=== PATIENT | male | born 1975 | race Caucasian/White ===

== ENCOUNTER 2018-05-28 04:34 | Inpatient (IN) | payer BC ==
[2018-05-28] MEDS ORDERED: DILTIAZEM DRIP BOLUS FROM BAG 1 MG SOLN IV ONE (04:53)
[2018-05-28] MEDS ORDERED: SODIUM CHLORIDE 0.9% 1,000 ML IV STA (04:53)
--- NOTE | 2018-05-28 04:55 | ED ---
Arrhythmia/Palpitations HPI - General Chief Complaint: Arrhythmia/Palpitations Stated Complaint: Irregular Heartbeat Time Seen by Provider: 05/28/18 04:52 Source: patient Mode of arrival: ambulatory Limitations: no limitations - History of Present Illness Initial Comments: This patient is a 43-year-old man who presents with complaint that he believes she has gone back into atrial fibrillation. The patient had an episode of this a few years ago, was seen and successfully converted back to sinus rhythm and had been doing well. He had been taking Rythmol for a period of time, then that was stopped. He does not take any medications for this. The patient relates that he had a number of alcoholic drinks on Saturday night, and then woke Saturday morning with symptoms. He states that he experienced rapid and irregular heart beat. He was not having any other symptoms, including no dyspnea, diaphoresis, chest pain, nausea or vomiting. When the symptoms continued he felt he should be seen here tonight. The patient again is not having any anginal symptoms. MD Complaint: atrial fibrillation Onset/Timin -: days(s) Context: awoke with symptoms Arrhythmia History: atrial fibrillation Associated Symptoms: denies other symptoms - Related Data Home Medications Medication Instructions Recorded Confirmed No Known Home Medications 05/28/18 05/28/18 Allergies Allergy/AdvReac Type Severity Reaction Status Date / Time No Known Allergies Allergy Verified 05/28/18 07:16 Review of Systems ROS Statement: Those systems with pertinent positive or pertinent negative responses have been documented in the HPI. ROS Other: All systems not noted in ROS Statement are negative. Constitutional: Denies: fever, chills Respiratory: Denies: cough, dyspnea Cardiovascular: Reports: palpitations. Denies: chest pain, orthopnea, edema, syncope Gastrointestinal: Denies: abdominal pain, nausea, vomiting Musculoskeletal: Denies: back pain Skin: Denies: rash Neurological: Denies: headache, weakness, numbness, paresthesias Hematological/Lymphatic: Denies: easy bleeding Past Medical History Past Medical History: Atrial Fibrillation History of Any Multi-Drug Resistant Organisms: None Reported Past Surgical History: Tonsillectomy Past Psychological History: No Psychological Hx Reported Smoking Status: Never smoker Past Alcohol Use History: Occasional Past Drug Use History: None Reported - Past Family History Father Family Medical History: Congestive Heart Failure (CHF) Mother Family Medical History: No Reported History General Exam Limitations: no limitations General appearance: alert, in no apparent distress Head exam: Present: atraumatic, normocephalic Eye exam: Present: normal appearance. Absent: scleral icterus, conjunctival injection ENT exam: Present: normal oropharynx Neck exam: Present: normal inspection Respiratory exam: Present: normal lung sounds bilaterally. Absent: respiratory distress, wheezes, rales, rhonchi, stridor Cardiovascular Exam: Present: tachycardia, irregular rhythm, normal heart sounds. Absent: systolic murmur, diastolic murmur, rubs, gallop GI/Abdominal exam: Present: soft. Absent: distended, tenderness, guarding, rebound, rigid, mass Extremities exam: Present: normal inspection, normal capillary refill. Absent: pedal edema, calf tenderness Back exam: Present: normal inspection. Absent: CVA tenderness (R), CVA tenderness (L) Neurological exam: Present: alert Skin exam: Present: warm, dry, intact, normal color. Absent: rash Course Vital Signs 05/28/18 05/28/18 04:40 06:00 Temperature 97.8 F Pulse Rate 67 94 Respiratory 18 13 Rate Blood Pressure 117/72 118/76 O2 Sat by Pulse 100 98 Oximetry EKG Findings - EKG Results: EKG: interpreted by ERMD, normal axis, normal QRS, normal ST/T EKG shows: atrial fibrillation (Rate approximately 136 bpm) Medical Decision Making - Lab Data Result diagrams: 05/28/18 05:00 05/28/18 05:00 Lab Results 05/28/18 05/28/18 05/28/18 Range/Units 05:00 05:00 05:00 WBC 6.5 (3.8-10.6) k/uL RBC 5.63 (4.30-5.90) m/uL Hgb 16.3 (13.0-17.5) gm/dL Hct 49.0 (39.0-53.0) % MCV 87.1 (80.0-100.0) fL MCH 29.0 (25.0-35.0) pg MCHC 33.3 (31.0-37.0) g/dL RDW 13.4 (11.5-15.5) % Plt Count 294 (150-450) k/uL Neutrophils % 65 % Lymphocytes % 24 % Monocytes % 7 % Eosinophils % 2 % Basophils % 0 % Neutrophils # 4.2 (1.3-7.7) k/uL Lymphocytes # 1.6 (1.0-4.8) k/uL Monocytes # 0.5 (0-1.0) k/uL Eosinophils # 0.1 (0-0.7) k/uL Basophils # 0.0 (0-0.2) k/uL PT (9.0-12.0) sec INR (<1.2) APTT (22.0-30.0) sec Sodium 140 (137-145) mmol/L Potassium 4.4 (3.5-5.1) mmol/L Chloride 106 (98-107) mmol/L Carbon Dioxide 25 (22-30) mmol/L Anion Gap 9 mmol/L BUN 14 (9-20) mg/dL Creatinine 0.93 (0.66-1.25) mg/dL Est GFR (CKD-EPI)AfAm >90 (>60 ml/min/1.73 sqM) Est GFR (CKD-EPI)NonAf >90 (>60 ml/min/1.73 sqM) Glucose 111 H (74-99) mg/dL Calcium 9.4 (8.4-10.2) mg/dL Magnesium 2.0 (1.6-2.3) mg/dL Total Bilirubin 1.1 (0.2-1.3) mg/dL AST 20 (17-59) U/L ALT 37 (21-72) U/L Alkaline Phosphatase 83 (38-126) U/L Total Creatine Kinase 120 (55-170) U/L CK-MB (CK-2) 0.9 (0.0-2.4) ng/mL CK-MB (CK-2) Rel Index 0.8 Troponin I <0.012 (0.000-0.034) ng/mL Total Protein 7.6 (6.3-8.2) g/dL Albumin 4.2 (3.5-5.0) g/dL TSH 1.290 (0.465-4.680) mIU/L Urine Opiates Screen (NotDetected) Ur Oxycodone Screen (NotDetected) Urine Methadone Screen (NotDetected) Ur Propoxyphene Screen (NotDetected) Ur Barbiturates Screen (NotDetected) U Tricyclic Antidepress (NotDetected) Ur Phencyclidine Scrn (NotDetected) Ur Amphetamines Screen (NotDetected) U Methamphetamines Scrn (NotDetected) U Benzodiazepines Scrn (NotDetected) Urine Cocaine Screen (NotDetected) U Marijuana (THC) Screen (NotDetected) 05/28/18 05/28/18 Range/Units 05:00 06:43 WBC (3.8-10.6) k/uL RBC (4.30-5.90) m/uL Hgb (13.0-17.5) gm/dL Hct (39.0-53.0) % MCV (80.0-100.0) fL MCH (25.0-35.0) pg MCHC (31.0-37.0) g/dL RDW (11.5-15.5) % Plt Count (150-450) k/uL Neutrophils % % Lymphocytes % % Monocytes % % Eosinophils % % Basophils % % Neutrophils # (1.3-7.7) k/uL Lymphocytes # (1.0-4.8) k/uL Monocytes # (0-1.0) k/uL Eosinophils # (0-0.7) k/uL Basophils # (0-0.2) k/uL PT 9.9 (9.0-12.0) sec INR 0.9 (<1.2) APTT 23.3 (22.0-30.0) sec Sodium (137-145) mmol/L Potassium (3.5-5.1) mmol/L Chloride (98-107) mmol/L Carbon Dioxide (22-30) mmol/L Anion Gap mmol/L BUN (9-20) mg/dL Creatinine (0.66-1.25) mg/dL Est GFR (CKD-EPI)AfAm (>60 ml/min/1.73 sqM) Est GFR (CKD-EPI)NonAf (>60 ml/min/1.73 sqM) Glucose (74-99) mg/dL Calcium (8.4-10.2) mg/dL Magnesium (1.6-2.3) mg/dL Total Bilirubin (0.2-1.3) mg/dL AST (17-59) U/L ALT (21-72) U/L Alkaline Phosphatase (38-126) U/L Total Creatine Kinase (55-170) U/L CK-MB (CK-2) (0.0-2.4) ng/mL CK-MB (CK-2) Rel Index Troponin I (0.000-0.034) ng/mL Total Protein (6.3-8.2) g/dL Albumin (3.5-5.0) g/dL TSH (0.465-4.680) mIU/L Urine Opiates Screen Not Detected (NotDetected) Ur Oxycodone Screen Not Detected (NotDetected) Urine Methadone Screen Not Detected (NotDetected) Ur Propoxyphene Screen Not Detected (NotDetected) Ur Barbiturates Screen Not Detected (NotDetected) U Tricyclic Antidepress Not Detected (NotDetected) Ur Phencyclidine Scrn Not Detected (NotDetected) Ur Amphetamines Screen Not Detected (NotDetected) U Methamphetamines Scrn Not Detected (NotDetected) U Benzodiazepines Scrn Not Detected (NotDetected) Urine Cocaine Screen Not Detected (NotDetected) U Marijuana (THC) Screen Not Detected (NotDetected) Critical Care Time Critical Care Time: Yes (35 minutes) Disposition Clinical Impression: Atrial fibrillation Disposition: ADMITTED IP TO THIS [facility] Condition: Fair Is patient prescribed a controlled substance at d/c from ED?: No
[2018-05-28] MEDS ORDERED: ENOXAPARIN 80 MG/0.8 ML SYRINGE SQ STA (05:00)
[2018-05-28 05:13] LABS: Basophils % (A) 0 %; Eosinophils # (A) 0.1 k/uL (0-0.7); Eosinophils % (A) 2 %; HGB 16.3 gm/dL (13.0-17.5); Lymphocytes # (A) 1.6 k/uL (1.0-4.8); Lymphocytes % (A) 24 %; MCHC 33.3 g/dL (31.0-37.0); MCV 87.1 fL (80.0-100.0); Mean Platelet Volume 6.5; Monocytes # (A) 0.5 k/uL (0-1.0); Monocytes % (A) 7 %; Neutrophils # (A) 4.2 k/uL (1.3-7.7); Neutrophils % (A) 65 %; Platelet Count 294 k/uL (150-450); RBC 5.63 m/uL (4.30-5.90); RDW 13.4 % (11.5-15.5); WBC 6.5 k/uL (3.8-10.6)
[2018-05-28] MEDS ORDERED: DILTIAZEM 125 MG in SODIUM CHLORIDE 0.9% 100 ML IV SCH (05:15)
--- NOTE | 2018-05-28 05:15 | XR ---
EXAM: XR Chest, 1 View CLINICAL HISTORY: dysrhythmia TECHNIQUE: Frontal view of the chest. COMPARISON: None. FINDINGS: Lungs: Unremarkable. No consolidation. Pleural space: Unremarkable. No pneumothorax. Heart: Unremarkable. No cardiomegaly. Mediastinum: Unremarkable. Bones/joints: Unremarkable. IMPRESSION: No acute cardiopulmonary process.
[2018-05-28 05:21] LABS: ALT 37 U/L (21-72); AST 20 U/L (17-59); Albumin 4.2 g/dL (3.5-5.0); Alkaline Phosphatase 83 U/L (38-126); Anion Gap 9 mmol/L; Blood Urea Nitrogen 14 mg/dL (9-20); Calcium 9.4 mg/dL (8.4-10.2); Carbon Dioxide 25 mmol/L (22-30); Chloride 106 mmol/L (98-107); Glucose 111 mg/dL (74-99); INR 0.9 (<1.2); Partial Thromboplastin Time 23.3 sec (22.0-30.0); Potassium 4.4 mmol/L (3.5-5.1); Prothrombin Time 9.9 sec (9.0-12.0); Sodium 140 mmol/L (137-145); Total Bilirubin 1.1 mg/dL (0.2-1.3); Total Protein 7.6 g/dL (6.3-8.2)
[2018-05-28 05:48] LABS: Creatine Kinase 120 U/L (55-170)
[2018-05-28 06:00] LABS: Creatine Kinase MB 0.9 ng/mL (0.0-2.4); Troponin I <0.012 ng/mL (0.000-0.034)
[2018-05-28] MEDS ORDERED: NITROGLYCERIN SL TABS 0.4 MG TAB SUBLINGUAL PRN (07:09)
[2018-05-28 07:15] LABS: Amphetamine Screen,Urine Not Detected (NotDetected); Barbiturate Screen,Urine Not Detected (NotDetected); Benzodiazepines Screen,Urine Not Detected (NotDetected); Cocaine Screen,Urine Not Detected (NotDetected); Methadone Screen, Urine Not Detected (NotDetected); Opiate Screen,Urine Not Detected (NotDetected); Oxycodone Screen, Urine Not Detected (NotDetected); Phencyclidine Screen,Urine Not Detected (NotDetected); Tricyclic Antidepressant,Urine Not Detected (NotDetected); Urn Cannabinoid Scrn Not Detected (NotDetected)
[2018-05-28] MEDS ORDERED: ENOXAPARIN 80 MG/0.8 ML SYRINGE SQ SCH (08:00)
[2018-05-28 10:22] VITALS: RESP 17; TEMP 97.4
--- NOTE | 2018-05-28 11:02 | P.CRDCN ---
History of Present Illness Consult date: 05/28/18 Requesting physician: Emre Merino Consult reason: atrial fibrillation Chief complaint: Palpitations History of present illness: This is a pleasant 43-year-old gentleman with history of recent mild hypertension, no diabetes, no hyperlipidemia, he is a nonsmoker, usually drinks rarely, however he states on Saturday night he had some friends in from out of town, and he had a lot to drink, significant amount as compared to what he usually consumes. Saturday he woke up, noticing himself to have rapid irregular heart beating, and new that he was back in atrial fibrillation. Patient states, that generally he was asymptomatic other than the palpitations, until yesterday he also became quite short of breath, he states that he's been in A. fib since Saturday. Several years ago the patient had an episode of atrial fibrillation, he was given Rythmol and converted back to normal sinus rhythm. He states that he was given Rythmol to keep as a pill in the pocket at that time, never required it, and it had since been discontinued. Recently in his physician's office he states his blood pressure was 140/90, he has had not been started on anything for hypertension, I instructed him this morning to keep regular sternal of his blood pressures to take back to his primary care doctor. His EKG on presentation here showed atrial fibrillation with a rapid ventricular response. Chest x-ray did not reveal any acute cardiopulmonary process. Blood pressure 130/80 with a heart rate in the 1 teens to 120s at this time. On Cardizem at 5 mg per hour. White blood cell count 6.5, hemoglobin 16.3, platelet count 294. Sodium 140, potassium 4.4, BUN 14 and creatinine 0.9. Magnesium 2.0. TSH 1.2. Drug screen negative. I have instructed the patient that we will obtain an echocardiogram with Doppler study to assess his LV function, and assess the presence of any potential thrombus. Past Medical History Past Medical History: Atrial Fibrillation Additional Past Medical History / Comment(s): Cardiac valve "problem", past Afib converted with rhythmol, borderline HTN-not on RX. History of Any Multi-Drug Resistant Organisms: None Reported Past Surgical History: Tonsillectomy Additional Past Surgical History / Comment(s): L knee fractured growth plate with surgery. Past Anesthesia/Blood Transfusion Reactions: No Reported Reaction Past Psychological History: No Psychological Hx Reported Smoking Status: Never smoker Past Alcohol Use History: Occasional Past Drug Use History: None Reported - Past Family History Father Family Medical History: Congestive Heart Failure (CHF) Mother Family Medical History: No Reported History Medications and Allergies Home Medications Medication Instructions Recorded Confirmed Type No Known Home Medications 05/28/18 05/28/18 History Allergies Allergy/AdvReac Type Severity Reaction Status Date / Time No Known Allergies Allergy Verified 05/28/18 07:16 Physical Exam Vitals: Vital Signs Temp Pulse Pulse Resp BP BP Pulse Ox 05/28/18 10:15 97.4 F L 88 17 131/87 97 05/28/18 08:00 111 H 16 135/94 05/28/18 07:00 113 H 17 101/89 99 05/28/18 06:00 94 13 118/76 98 05/28/18 04:40 97.8 F 67 18 117/72 100 Intake and Output 05/27/18 05/28/18 05/28/18 22:59 06:59 14:59 Other: Weight 79.379 kg PHYSICAL EXAMINATION: GENERAL: 83-year-old gentleman in no acute distress at the time of my examination HEENT: Head is atraumatic, normocephalic. Pupils equal, round. Sclera anicteric. Conjunctiva are clear. Mucous membranes of the mouth are moist. Neck is supple. There is no elevated jugular venous pressure. No carotid bruit is heard. HEART EXAMINATION: Heart S1 and S2 irregularly irregular CHEST EXAMINATION: Lungs are clear to auscultation and precussion. No chest wall tenderness is noted on palpation or with deep breathing. ABDOMEN: Soft, nontender. Bowel sounds are heard. No organomegaly noted. EXTREMITIES: 2+ peripheral pulses with no evidence of peripheral edema and no calf tenderness noted. NEUROLOGIC patient is awake, alert and oriented 3 . . Results 05/28/18 05:00 05/28/18 05:00 Cardiac Enzymes 05/28/18 05/28/18 Range/Units 05:00 05:00 AST 20 (17-59) U/L CK-MB (CK-2) 0.9 (0.0-2.4) ng/mL Troponin I <0.012 (0.000-0.034) ng/mL Coagulation 05/28/18 Range/Units 05:00 PT 9.9 (9.0-12.0) sec APTT 23.3 (22.0-30.0) sec CBC 05/28/18 Range/Units 05:00 WBC 6.5 (3.8-10.6) k/uL RBC 5.63 (4.30-5.90) m/uL Hgb 16.3 (13.0-17.5) gm/dL Hct 49.0 (39.0-53.0) % Plt Count 294 (150-450) k/uL Comprehensive Metabolic Panel 05/28/18 Range/Units 05:00 Sodium 140 (137-145) mmol/L Potassium 4.4 (3.5-5.1) mmol/L Chloride 106 (98-107) mmol/L Carbon Dioxide 25 (22-30) mmol/L BUN 14 (9-20) mg/dL Creatinine 0.93 (0.66-1.25) mg/dL Glucose 111 H (74-99) mg/dL Calcium 9.4 (8.4-10.2) mg/dL AST 20 (17-59) U/L ALT 37 (21-72) U/L Alkaline Phosphatase 83 (38-126) U/L Total Protein 7.6 (6.3-8.2) g/dL Albumin 4.2 (3.5-5.0) g/dL Current Medications Generic Name Dose Route Start Last Admin Trade Name Freq PRN Reason Stop Dose Admin Aspirin 325 mg 05/29/18 09:00 Aspirin PO DAILY [facility] Enoxaparin Sodium 80 mg 05/28/18 08:00 05/28/18 10:26 Lovenox SQ Not Given Q12H [facility] Diltiazem HCl 125 mg/ Sodium 125 mls @ 5 mls/hr 05/28/18 05:15 05/28/18 05:23 Chloride IV 5 mg/hr .Q24H [facility]REYAS 5 mls/hr Administration 5 MG/HR Sodium Chloride 1,000 mls @ 100 mls/hr 05/28/18 07:15 Saline 0.9% IV .Q10H [facility] Nitroglycerin 0.4 mg 05/28/18 07:09 Nitrostat SUBLINGUAL Q5M PRN Chest Pain Intake and Output 05/27/18 05/28/18 05/28/18 22:59 06:59 14:59 Other: Weight 79.379 kg 05/28/18 05:00 05/28/18 05:00 EKG Interpretations (text) EKG shows atrial fibrillation with a rapid ventricular response. Assessment and Plan Plan: Assessment and plan #1 atrial fibrillation with rapid ventricular response, paroxysmal #2 history of one prior episode of atrial fibrillation several years ago #3 mild hypertension #4 recent significant use of alcohol on Saturday evening prior to this episode starting on Saturday. Plan We will obtain an echocardiogram with Doppler study to assess the LV function, continue anticoagulation. Patient has been in atrial fibrillation since Saturday , consider possible GLENN to assess for thrombus, which would allow us to safely pharmacologically or electrically cardiovert the patient. Obtain TSH level Further recommendations to follow. DNP note has been reviewed, I agree with a documented findings and plan of care. Patient was seen and examined.
[2018-05-28 11:13] LABS: Creatine Kinase 98 U/L (55-170)
--- NOTE | 2018-05-28 11:20 | ECHOF ---
Referral Reason:assess lvf MEASUREMENTS -------- HEIGHT: 180.3 cm WEIGHT: 79.4 kg BP: RVIDd: 2.9 cm (< 3.3) IVSd: 1.1 cm (0.6 - 1.1) LVIDd: 4.2 cm (3.9 - 5.3) LVPWd: 1.3 cm (0.6 - 1.1) IVSs: 1.8 cm LVIDs: 2.3 cm LVPWs: 2.1 cm LAESV Index (A-L): 33.87 ml/m Ao Diam: 3.1 cm (2.0 - 3.7) AV Cusp: 2.3 cm (1.5 - 2.6) LA Diam: 3.3 cm (2.7 - 3.8) MV EXCURSION: 18.395 mm (> 18.000) MV EF SLOPE: 91 mm/s (70 - 150) EPSS: 0.4 cm RAP: 5.00 mmHg RVSP: 28.02 mmHg FINDINGS -------- Atrial fibrillation. This was a technically good study. The left ventricular size is normal. There is mild concentric left ventricular hypertrophy. Overa ll left ventricular systolic function is low-normal with, an EF between 50 - 55 %. The right ventricle is normal in size and function. LA is midly dilated 29-33ml/m2. The right atrium is normal in size. The aortic valve is trileaflet and appears structurally normal. Mitral valve is thickened with myxomatous degeneration. Rtyevgcn-[id number] mitral regurgitation is present. Mild prolapse of the anterior mitral valve leaflet. Mild prolapse of the posterior matt l valve leaflet. Mild tricuspid regurgitation present. The right ventricular systolic pressure, as measured by Doppl er, is 28.02mmHg. Trace/mild (physiologic) pulmonic regurgitation. The aortic root size is normal. Normal inferior vena cava with normal inspiratory collapse consistent with estimated right atrial pre ssure of 5 mmHg. The pericardium is normal. CONCLUSIONS -------- 1. Atrial fibrillation. 2. This was a technically good study. 3. The left ventricular size is normal. 4. There is mild concentric left ventricular hypertrophy. 5. Overall left ventricular systolic function is low-normal with, an EF between 50 - 55 %. 6. The right ventricle is normal in size and function. 7. LA is midly dilated 29-33ml/m2. 8. The right atrium is normal in size. 9. The aortic valve is trileaflet and appears structurally normal. 10. Mitral valve is thickened with myxomatous degeneration. 11. Eclulcjn-lt-ncndho mitral regurgitation is present. 12. Mild prolapse of the anterior mitral valve leaflet. 13. Mild prolapse of the posterior mitral valve leaflet. 14. Mild tricuspid regurgitation present. 15. The right ventricular systolic pressure, as measured by Doppler, is 28.02mmHg. 16. Trace/mild (physiologic) pulmonic regurgitation. 17. The aortic root size is normal. 18. Normal inferior vena cava with normal inspiratory collapse consistent with estimated right atrial pressure of 5 mmHg. 19. The pericardium is normal. [employer] WORKER: Fariha Kerr RDCS
[2018-05-28 11:26] LABS: Creatine Kinase MB 0.7 ng/mL (0.0-2.4); Troponin I <0.012 ng/mL (0.000-0.034)
[2018-05-28] MEDS ORDERED: PROPAFENONE 150 MG TAB PO STA (11:37)
[2018-05-28] MEDS: SODIUM CHLORIDE 0.9% 1,000 ML IV SCH ×2 (12:14)
[2018-05-28] MEDS ORDERED: METOPROLOL SUCCINATE (ER) 25 MG TAB.ER.24H PO STA ×2 (13:29→15:33)
[2018-05-28 15:19] VITALS: BP 129/83; PULSE 70
[2018-05-28 17:42] LABS: Creatine Kinase 89 U/L (55-170)
[2018-05-28 17:53] LABS: Creatine Kinase MB 0.5 ng/mL (0.0-2.4); Troponin I <0.012 ng/mL (0.000-0.034)
[2018-05-28] MEDS ORDERED: APIXABAN 5 MG TAB PO SCH (21:00)
--- NOTE | 2018-05-28 23:14 | P.HPIM ---
History of Present Illness H&P Date: 05/28/18 Chief Complaint: Palpitations Patient is a 6-year-old male with a known history of atrial fibrillation several years ago currently not on any medications as well as alcohol use an daily basis was initially admitted to the hospital with complaints of heart racing up fast and palpitations. Patient had previous atrial fibrillation history which was converted to sinus rhythm with Rythmol. Patient stopped using Rythmol currently. Patient did have several drinks on Saturday night and woke up on Saturday morning with palpitations. He states that he experienced rapid and irregular heart beat. He was not having any other symptoms, including no dyspnea, diaphoresis, chest pain, nausea or vomiting. When the symptoms continued he felt he should be seen here tonight. The patient again is not having any anginal symptoms. EKG showed atrial fibrillation with rapid regular rate around 136 Chest x-ray is negative Troponin negative Patient was started on Cardizem drip. Patient is currently converted back to sinus rhythm. Review of Systems Constitutional: Patient denies any fever or chills . No generalized weakness or weight loss. Abdomen: Patient denied nausea vomiting and diarrhea and abdominal pain. Cardiovascular: Patient denies any chest pain or short of breath . Patient does have palpitations. Respiratory: patient denied any cough is from production. No shortness of breath Neurologic: Patient denied any numbness or tingling headache. Musculoskeletal: Patient denies any complaints of joint swelling or deformity. Skin: Negative Psychiatric: Negative Endocrine: No heat or cold intolerance. No recent weight gain. Genitourinary: No dysuria or hematuria. All other 14 point ROS negative except the above Past Medical History Past Medical History: Atrial Fibrillation Additional Past Medical History / Comment(s): Cardiac valve "problem", past Afib converted with rhythmol, borderline HTN-not on RX. History of Any Multi-Drug Resistant Organisms: None Reported Past Surgical History: Tonsillectomy Additional Past Surgical History / Comment(s): L knee fractured growth plate with surgery. Past Anesthesia/Blood Transfusion Reactions: No Reported Reaction Past Psychological History: No Psychological Hx Reported Smoking Status: Never smoker Past Alcohol Use History: Occasional Past Drug Use History: None Reported - Past Family History Father Family Medical History: Congestive Heart Failure (CHF) Mother Family Medical History: No Reported History Medications and Allergies Home Medications Medication Instructions Recorded Confirmed Type Apixaban [Eliquis] 5 mg PO BID #60 tab 05/28/18 Rx Metoprolol Succinate (ER) [Toprol 50 mg PO DAILY #30 tab.er.24h 05/28/18 Rx XL] Allergies Allergy/AdvReac Type Severity Reaction Status Date / Time No Known Allergies Allergy Verified 05/28/18 07:16 Physical Exam Vitals: Vital Signs Temp Pulse Pulse Resp BP BP Pulse Ox 05/28/18 10:15 97.4 F L 88 17 131/87 97 05/28/18 08:00 111 H 16 135/94 05/28/18 07:00 113 H 17 101/89 99 05/28/18 06:00 94 13 118/76 98 05/28/18 04:40 97.8 F 67 18 117/72 100 Intake and Output 05/27/18 05/28/18 05/28/18 22:59 06:59 14:59 Other: Weight 79.379 kg PHYSICAL EXAMINATION: Patient is lying in the bed comfortably, no acute distress, awake alert and oriented.. HEENT: Normocephalic. Neck is supple. Pupils reactive. Nostrils clear. Oral cavity is moist. Ears reveal no drainage. Neck reveals no JVD, carotid bruits, or thyromegaly. CHEST EXAMINATION: Trachea is central. Symmetrical expansion. Lung yeung clear to auscultation and percussion. CARDIAC: Normal S1, S2 with no gallops. No murmurs ABDOMEN: Soft. Bowel sounds normal. No organomegaly. No abdominal bruits. Extremities: reveal no edema. No clubbing or cyanosis Neurologically awake, alert, oriented x3 with well-coordinated movements. No focal deficits noted Skin: No rash or skin lesions. Psychiatric: Coperative. Nonsuicidal Musculoskeletal: No joint swelling or deformity. Normal range of motion. Results CBC & Chem 7: 05/28/18 05:00 05/28/18 05:00 Labs: Abnormal Lab Results - Last 24 Hours (Table) 05/28/18 Range/Units 05:00 Glucose 111 H (74-99) mg/dL Thrombosis Risk Factor Assmnt - DVT/VTE Prophylaxis DVT/VTE Prophylaxis: Pharmacologic Prophylaxis ordered, Mechanical Prophylaxis ordered - Choose All That Apply Any of the Below Risk Factors Present?: Yes Each Factor Represents 1 point: Age 41-60 years Other Risk Factors: No Other congenital or acquired thrombophilia - If yes, enter type in comment: No Thrombosis Risk Factor Assessment Total Risk Factor Score: 1 Thrombosis Risk Factor Assessment Level: Low Risk Assessment and Plan Assessment: Atrial fibrillation with rapid ventricular rate Previous history of atrial fibrillation which was converted to sinus with Rythmol. Patient stopped taking medication. Alcohol abuse Significant alcohol intake the night prior to his symptoms. Hypertension currently not on medication Plan: Patient be continued on Cardizem drip. Patient is currently in sinus rhythm. Cardiology was consulted and 2-D echo cardiac rhythm was ordered. Further conditions based on the clinical course. Alcohol abuse has been counseled extensively. Monitor for alcohol withdrawal symptoms. Time with Patient: Greater than 30
--- NOTE | 2018-05-28 23:16 | P.DS ---
Providers Date of admission: 05/28/18 07:09 Expected date of discharge: 05/28/18 Attending physician: Emre Merino Consults: 05/28/18 07:09 Consult Physician Routine Consulting Provider: Lian Wiseman Consult Reason/Comments: Atrial fibrillation with rapid ventricular rate Do you want consulting provider notified?: Yes Primary care physician: [facility] Course: Discharge diagnosis Atrial fibrillation with rapid ventricular rate Previous history of atrial fibrillation which was converted to sinus with Rythmol. Patient stopped taking medication. Alcohol abuse Significant alcohol intake the night prior to his symptoms. Hypertension currently not on medication Hospital course Patient is a 6-year-old male with a known history of atrial fibrillation several years ago currently not on any medications as well as alcohol use an daily basis was initially admitted to the hospital with complaints of heart racing up fast and palpitations. Patient had previous atrial fibrillation history which was converted to sinus rhythm with Rythmol. Patient stopped using Rythmol currently. Patient did have several drinks on Saturday night and woke up on Saturday morning with palpitations. He states that he experienced rapid and irregular heart beat. He was not having any other symptoms, including no dyspnea, diaphoresis, chest pain, nausea or vomiting. When the symptoms continued he felt he should be seen here tonight. The patient again is not having any anginal symptoms. EKG showed atrial fibrillation with rapid regular rate around 136 Chest x-ray is negative Troponin negative Patient was started on Cardizem drip. Patient is currently converted back to sinus rhythm. Patient was continued on Cardizem drip. Patient is currently converted to sinus rhythm. Cardiology was consulted and 2-D echo cardiac rhythm was ordered. 2-D echo Cardizem showed normal sinus rhythm. Patient was started on metoprolol by mouth and also anti-coagulation with Eliquis. Alcohol abuse has been counseled extensively. Monitored for alcohol withdrawal symptoms. Patient is currently symptomatic and is stable to be discharged home. Discharge physical examination was done and vitals reviewed. Patient Condition at Discharge: Stable Plan - Discharge Summary Discharge Rx Participant: No New Discharge Prescriptions: New Apixaban [Eliquis] 5 mg PO BID #60 tab Metoprolol Succinate (ER) [Toprol XL] 50 mg PO DAILY #30 tab.er.24h Discharge Medication List Apixaban [Eliquis] 5 mg PO BID #60 tab 05/28/18 [Rx] Metoprolol Succinate (ER) [Toprol XL] 50 mg PO DAILY #30 tab.er.24h 05/28/18 [Rx ] Follow up Appointment(s)/Referral(s): Jarrett Munguia MD [Primary Care Provider] - 06/03/18 1:20 pm (Saturday ) Zak Eric MD [STAFF PHYSICIAN] - 06/10/18 2:30 pm (Saturday [facility]) Patient Instructions/Handouts: A-fib (Atrial Fibrillation) (DC), Safe Use of Anticoagulants (ED) Discharge Disposition: HOME SELF-CARE
[2018-05-29] MEDS ORDERED: ASPIRIN 325 MG TAB PO SCH (09:00)
[2018-05-29] MEDS ORDERED: METOPROLOL SUCCINATE (ER) 25 MG TAB.ER.24H PO SCH (09:00)
[2018-05-29] MEDS ORDERED: METOPROLOL SUCCINATE (ER) 50 MG TAB.ER.24H PO SCH (09:00)
== END 2018-05-28 17:10 | disposition home or self-care (01) | DRG 310 ==
LOC: EC 04:34 → 3SCARD 07:09
PROVIDERS: ADMIT Hospitalist; ATTEND Hospitalist
DX: I48.2 Chronic atrial fibrillation (principal); F10.10 Alcohol abuse, uncomplicated; Z79.01 Long term (current) use of anticoagulants; Z82.49 Family history of ischemic heart disease and other diseases of the circulatory system; Z79.899 Other long term (current) drug therapy
CPT/HCPCS: 36415; 71045; 80053; 80306; 82550; 82553; 83735; 84443; 84484; 85025; 85610; 85730; 93005; 93306; 96365; 96366; 96372; 96376; 99291

== ENCOUNTER 2021-03-15 11:46 | Observation (INO) | payer BC, OTHER ==
[2021-03-15] MEDS ORDERED: MORPHINE SULFATE 4 MG/ML SYRINGE IV STA (11:54)
[2021-03-15] MEDS ORDERED: NITROGLYCERIN OINT 1 INCH/GM PACKET TOPICAL STA (11:54)
[2021-03-15 11:56] VITALS: RESP 18; TEMP 96.8
--- NOTE | 2021-03-15 12:02 | ED ---
Chest Pain HPI - General Chief Complaint: Chest Pain Stated Complaint: Chest Pain Time Seen by Provider: 03/15/21 11:50 Source: patient, EMS, RN notes reviewed Mode of arrival: EMS Limitations: no limitations - History of Present Illness Initial Comments: 45-year-old male with a history of A. fib in the past who presented to his doctor's office with complaints of chest pain is started last evening around 11 PM was retrosternal radiate to his back he was sent here via EMS. He was given 324 mg of aspirin as well as 2 nitroglycerin with some improvement in the pain he was 3/10 in severity currently states is 5/10 lower midsternal dull in nature. No cough fevers chills nausea vomiting sweats he did feel lightheaded at the nitroglycerin was given. MD Complaint: chest pain - Related Data Home Medications Medication Instructions Recorded Confirmed No Known Home Medications 03/15/21 03/15/21 Allergies Allergy/AdvReac Type Severity Reaction Status Date / Time No Known Allergies Allergy Verified 03/15/21 13:31 Review of Systems ROS Statement: Those systems with pertinent positive or pertinent negative responses have been documented in the HPI. ROS Other: All systems not noted in ROS Statement are negative. EKG Findings - EKG Results: EKG: interpreted by ANYA, sinus rhythm (Normal sinus rhythm a 73. We'll 174 QRS 96 daily since QTC 410/451 nonspecific T-wave configuration this is compared with an EKG dated 05/28/18 showing similar configuration.) Past Medical History Past Medical History: Atrial Fibrillation Additional Past Medical History / Comment(s): Cardiac valve "problem", past Afib converted with rhythmol, borderline HTN-not on RX. History of Any Multi-Drug Resistant Organisms: None Reported Past Surgical History: Tonsillectomy Additional Past Surgical History / Comment(s): L knee fractured growth plate with surgery. Past Anesthesia/Blood Transfusion Reactions: No Reported Reaction Past Psychological History: No Psychological Hx Reported Smoking Status: Never smoker Past Alcohol Use History: Occasional Past Drug Use History: None Reported - Past Family History Father Family Medical History: Congestive Heart Failure (CHF) Mother Family Medical History: No Reported History General Exam - General Exam Comments Initial Comments: This is a well-developed well-nourished awake alert oriented 3 male Limitations: no limitations General appearance: alert, anxious Head exam: Present: atraumatic, normocephalic, normal inspection Eye exam: Present: normal appearance, PERRL, EOMI. Absent: scleral icterus, conjunctival injection, periorbital swelling ENT exam: Present: normal exam, mucous membranes moist Neck exam: Present: normal inspection, full ROM, other (No stridor JVD or bruits). Absent: tenderness, meningismus, lymphadenopathy Respiratory exam: Present: normal lung sounds bilaterally. Absent: respiratory distress, wheezes, rales, rhonchi, stridor Cardiovascular Exam: Present: regular rate, normal rhythm, normal heart sounds. Absent: systolic murmur, diastolic murmur, rubs, gallop, clicks GI/Abdominal exam: Present: soft, normal bowel sounds. Absent: distended, tenderness, guarding, rebound, rigid Extremities exam: Present: normal inspection, full ROM, normal capillary refill. Absent: tenderness, pedal edema, joint swelling, calf tenderness Back exam: Present: normal inspection Neurological exam: Present: alert, oriented X3, CN II-XII intact Psychiatric exam: Present: normal affect, normal mood Skin exam: Present: warm, dry, intact, normal color. Absent: rash Course Vital Signs 03/15/21 11:49 Temperature 96.8 F L Pulse Rate 75 Respiratory 18 Rate Blood Pressure 133/82 O2 Sat by Pulse 97 Oximetry - Reevaluation(s) Reevaluation #1: 03/15/21 14:55 Reevaluation patient finds that he does feel improved he does admit that he's been having a cough but no overt fevers chills or sweats. We did discuss the x- ray findings. Chest Pain MDM - MDM Imaging reviewed evidence of interstitial markings consistent with pneumonitis/pneumonia patient did have an elevated white blood cell count left shift did present with chest pain and appeared to be consistent with ACS. Critical Care Time Critical Care Time: Yes Total Critical Care Time: 31 Critical Care Time: This includes initial presentation with history physical labs x-rays multiple reevaluation the patient discussed with patient family regarding findings discussed with the main physician admission orders and documentation of Disposition Clinical Impression: Unstable angina pectoris, Chest pain, Interstitial pneumonia Disposition: ADMITTED IP TO THIS [facility] Condition: Fair Referrals: Jarrett Munguia MD [Primary Care Provider] - 1-2 days
--- NOTE | 2021-03-15 12:17 | XR ---
EXAMINATION TYPE: XR chest 2V DATE OF EXAM: 03/15/2021 COMPARISON: 05/28/2018 TECHNIQUE: PA and lateral views submitted. HISTORY: Chest pain FINDINGS: The lungs are clear and there is no pneumothorax, pleural effusion, or focal pneumonia. Heart size normal. No overt failure. Mild interstitial prominence. Arthropathy of the shoulders. IMPRESSION: 1. Correlate for mild bronchitis or interstitial pneumonitis..
[2021-03-15 12:29] LABS: Basophils % (A) 0 %; Eosinophils # (A) 0.1 k/uL (0-0.7); Eosinophils % (A) 1 %; HCT 44.2 % (39.0-53.0); Lymphocytes # (A) 1.1 k/uL (1.0-4.8); Lymphocytes % (A) 8 %; MCH 29.7 pg (25.0-35.0); MCHC 33.8 g/dL (31.0-37.0); MCV 87.9 fL (80.0-100.0); Mean Platelet Volume 7.2; Monocytes # (A) 0.8 k/uL (0-1.0); Monocytes % (A) 6 %; Neutrophils # (A) 11.3 k/uL (1.3-7.7); Neutrophils % (A) 84 %; Platelet Count 319 k/uL (150-450); RBC 5.03 m/uL (4.30-5.90); WBC 13.5 k/uL (3.8-10.6)
[2021-03-15 12:50] LABS: ALT 43 U/L (4-49); AST 41 U/L (17-59); African American GFR (CKD) >90 (>60 ml/min/1.73 sqM); Albumin 4.2 g/dL (3.5-5.0); Alkaline Phosphatase 89 U/L (38-126); Anion Gap 9 mmol/L; Blood Urea Nitrogen 11 mg/dL (9-20); Calcium 9.2 mg/dL (8.4-10.2); Carbon Dioxide 25 mmol/L (22-30); Chloride 99 mmol/L (98-107); Glucose 119 mg/dL (74-99); INR 0.9 (<1.2); Lipase 94 U/L (23-300); Magnesium 1.5 mg/dL (1.6-2.3); Non-African American GFR(CKD) >90 (>60 ml/min/1.73 sqM); Partial Thromboplastin Time 21.3 sec (22.0-30.0); Potassium 4.2 mmol/L (3.5-5.1); Prothrombin Time 9.8 sec (9.0-12.0); Sodium 133 mmol/L (137-145); Total Bilirubin 0.7 mg/dL (0.2-1.3); Total Protein 7.8 g/dL (6.3-8.2)
[2021-03-15] MEDS ORDERED: cefTRIAXone IN SWFI 1,000 MG/10 ML SYRINGE IVP STA (14:53)
[2021-03-15] MEDS ORDERED: NITROGLYCERIN SL TABS 0.4 MG TAB SUBLINGUAL PRN (14:58)
[2021-03-15] MEDS ORDERED: HEPARIN SODIUM 1,000 UN/ML (10ML VL) IV ONE (14:58)
[2021-03-15] MEDS ORDERED: HEPARIN SOD,PORK IN 0.45% NACL 25,000 UNIT in 0.45% NACL 1 250ML.BAG IV SCH (15:00)
[2021-03-15] MEDS ORDERED: MORPHINE SULFATE 4 MG/ML SYRINGE IVP STA (15:51)
--- NOTE | 2021-03-15 16:36 | P.HPIM ---
<Luigi Altamirano - Last Filed: 03/15/21 15:49> History of Present Illness H&P Date: 03/15/21 History of Presenting Illness: Patient is a very pleasant 45-year-old male with a past medical history of paroxysmal atrial fibrillation and presented to the emergency department with a chief complaint of chest pain and cough starting yesterday evening. This chest pain was described as retrosternal radiating into his back. Patient was given aspirin and nitroglycerin by EMS and transported to ER. In the emergency department, patient was seen and fully evaluated. He underwent a chest x-ray which revealed findings consistent with mild bronchitis or interstitial pneumonitis. An EKG revealed sinus rhythm at 73 bpm with inferior lateral T- wave abnormalities unchanged from previous EKG obtained 05/28/2018. Labs revealing mild leukocytosis with WBC count of 13.5, mild hyponatremia with sodium of 133, and hypomagnesemia with magnesium of 1.5. Troponin normal findings at < 0.012 and pro-BMP 291. Patient started on heparin infusion in the emergency department per ACS protocol for unstable angina and was admitted under our services with consultation to cardiology. Patient seen and fully evaluated at bedside, he reports approximately one month ago he was ill with what he believed to have been a Covid infection but was never tested. Patient stated this illness lasted just over a week and completely resolved with an occasional residual cough. Otherwise he denies having any fevers, chills, diaphoresis, headache, lightheadedness, shortness of breath, dyspnea with exertion, abdominal pain, nausea, vomiting, or experiencing any numbness/tingling/weakness in his extremities. Patient reports around 11:00 pm last night while he was relaxing he began to feel pain to midsternal chest with retrosternal radiation into his back. Patient reports this pain is dull, gnawing and constant and despite treatment remains untrained. He denies anything making this pain better or worse and denies being able to replicate pain with movement, palpitation or exertion. Patient reports a family history of congestive heart failure and denies personally being seen by a physician in greater than 2 years. He denies tobacco use and drug use. Patient does report daily EtOH use drinking 1-2 margaritas nightly. Review of systems: Pertinent positives and negatives as discussed in HPI, a complete review of systems was performed and all other systems are negative. Physical exam: Vital signs reviewed and stable. General: Nontoxic, no distress and appears stated age. Derm: Skin warm and dry, normal coloration for ethnicity. Head: Atraumatic, normocephalic and symmetric. Eyes: EOMs intact, no lid lag, and anicteric sclera Mouth: no lip lesions, mucus membranes moist Cardiovascular: regular rate and rhythm with normal S1S2, no murmur, positive posterior tibial pulses bilaterally, and cap refill < 2 seconds. Lungs: Respirations even, regular, and unlabored on room air. Lungs CTA bilate rally, no rhonchi, no rales, no wheezing, and no accessory muscle usage. Abdominal: soft, nontender to palpation, no guarding, no appreciable organomegaly Ext: ROM intact. No gross muscle atrophy, no edema, no contractures Neuro: Speech clear, face symmetrical and CN II-XII grossly intact with no noted focal neuro deficits Psych: Alert and oriented to person, place, time, and situation. Appropriate and pleasant affect. Assessment and Plan of Care: Chest pain, unstable angina rule out ACS -Cardiology consult -Telemetry monitoring -Initial troponin < 0.012 and we will continue to Trend troponins -ProBNP 291 -Cardiac diet -Aspirin, atorvastatin, and metoprolol -Lipid profile with a.m. labs. -Echocardiogram to evaluate structure and function of heart Hypomagnesemia -Replaced, we will continue to monitor with repeat a.m. labs. History of paroxysmal atrial fibrillation not on anticoagulation as patient previously converted to normal sinus rhythm with medication -Patient currently on heparin infusion per ACS protocol for unstable angina The patient is admitted with an anticipated less than than 2 midnight stay for evaluation of chest pain. CODE STATUS: Full code DVT prophylaxis: Heparin Discussed with: Patient Anticipated discharge date: 1-[address]: Home A total of 45 minutes was spent on the care of this complex patient more than 50% of the time was spent in counseling and care coordination. Past Medical History Past Medical History: Atrial Fibrillation Additional Past Medical History / Comment(s): Cardiac valve "problem", past Afib converted with rhythmol, borderline HTN-not on RX. History of Any Multi-Drug Resistant Organisms: None Reported Past Surgical History: Tonsillectomy Additional Past Surgical History / Comment(s): L knee fractured growth plate with surgery. Past Anesthesia/Blood Transfusion Reactions: No Reported Reaction Past Psychological History: No Psychological Hx Reported Smoking Status: Never smoker Past Alcohol Use History: Occasional Past Drug Use History: None Reported - Past Family History Father Family Medical History: Congestive Heart Failure (CHF) Mother Family Medical History: No Reported History Medications and Allergies Home Medications Medication Instructions Recorded Confirmed Type No Known Home Medications 03/15/21 03/15/21 History Allergies Allergy/AdvReac Type Severity Reaction Status Date / Time No Known Allergies Allergy Verified 03/15/21 13:31 Physical Exam Vitals: Vital Signs Temp Pulse Resp BP Pulse Ox 03/15/21 11:49 96.8 F L 75 18 133/82 97 Intake and Output 03/15/21 03/15/21 03/15/21 06:59 14:59 22:59 Other: Weight 81.647 kg Results CBC & Chem 7: 03/15/21 11:58 03/15/21 11:58 Labs: Abnormal Lab Results - Last 24 Hours (Table) 03/15/21 03/15/21 03/15/21 Range/Units 11:58 11:58 11:58 WBC 13.5 H (3.8-10.6) k/uL Neutrophils # 11.3 H (1.3-7.7) k/uL APTT 21.3 L (22.0-30.0) sec Sodium 133 L (137-145) mmol/L Glucose 119 H (74-99) mg/dL Magnesium 1.5 L (1.6-2.3) mg/dL <Raulito Christian - Last Filed: 03/16/21 09:59> Physical Exam Vitals: Vital Signs Temp Pulse Resp BP Pulse Ox 03/16/21 06:48 86 18 134/78 99 03/16/21 05:00 89 18 122/85 99 03/16/21 02:36 98 18 134/87 99 03/15/21 17:08 87 18 114/74 99 03/15/21 11:49 96.8 F L 75 18 133/82 97 Intake and Output 03/15/21 03/16/21 03/16/21 22:59 06:59 14:59 Other: Weight 81.647 kg Results CBC & Chem 7: 03/16/21 05:29 03/16/21 05:29 Labs: Abnormal Lab Results - Last 24 Hours (Table) 03/15/21 03/15/21 03/15/21 Range/Units 11:58 11:58 11:58 WBC 13.5 H (3.8-10.6) k/uL Neutrophils # 11.3 H (1.3-7.7) k/uL APTT 21.3 L (22.0-30.0) sec Sodium 133 L (137-145) mmol/L Glucose 119 H (74-99) mg/dL Calcium (8.7-10.3) mg/dL Magnesium 1.5 L (1.6-2.3) mg/dL AST (14-35) U/L ALT (10-49) U/L Albumin/Globulin Ratio (1.60-3.17) g/dL Cholesterol (0.00-200.00) mg/dL HDL Cholesterol (40.00-60.00) mg/dL 03/16/21 03/16/21 Range/Units 05:29 05:29 WBC 12.75 H (3.8-10.6) k/uL Neutrophils # (1.3-7.7) k/uL APTT (22.0-30.0) sec Sodium 134 L (137-145) mmol/L Glucose 121 H (74-99) mg/dL Calcium 8.5 L (8.7-10.3) mg/dL Magnesium (1.6-2.3) mg/dL AST 178 H (14-35) U/L ALT 172 H (10-49) U/L Albumin/Globulin Ratio 1.34 L (1.60-3.17) g/dL Cholesterol 206.00 H (0.00-200.00) mg/dL HDL Cholesterol 61.30 H (40.00-60.00) mg/dL Assessment and Plan Plan: I personally saw and evaluated the patient emergency department and discussed the plan of care with nurse practitioner. I discussed plan of care with the patient and his in the room.
[2021-03-15] MEDS ORDERED: NITROGLYCERIN OINT 1 INCH/GM PACKET TOPICAL SCH (18:00)
[2021-03-15] MEDS: MAGNESIUM SULFATE-D5W PMX 1 GM in DEXTROSE/WATER 1 100ML.BAG IVPB SCH ×2 (19:06→22:26)
[2021-03-15] MEDS: SODIUM CHLORIDE 0.9% 1,000 ML IV SCH (19:07)
[2021-03-15] MEDS ORDERED: ATORVASTATIN 40 MG TAB PO SCH (21:00)
[2021-03-15] MEDS: METOPROLOL TARTRATE 25 MG TAB PO SCH (22:26)
[2021-03-15] MEDS ORDERED: MORPHINE SULFATE 4 MG/ML SYRINGE IVP PRN (22:39)
[2021-03-16] MEDS: SODIUM CHLORIDE 0.9% 1,000 ML IV SCH (02:33)
[2021-03-16] MEDS: MAGNESIUM SULFATE-D5W PMX 1 GM in DEXTROSE/WATER 1 100ML.BAG IVPB SCH (02:33)
[2021-03-16 06:49] VITALS: BP 134/78; PULSE 86
[2021-03-16] MEDS: METOPROLOL TARTRATE 25 MG TAB PO SCH (08:55)
[2021-03-16] MEDS ORDERED: COLCHICINE 0.6 MG EACH PO SCH (09:00)
[2021-03-16] MEDS ORDERED: ASPIRIN 325 MG TAB PO SCH ×2 (09:00)
[2021-03-16 09:02] LABS: HCT 40.5 % (39.6-50.0); HGB 13.1 g/dL (13.0-17.0); MCH 28.4 pg (27.0-32.0); MCHC 32.3 g/dL (32.0-37.0); MCV 87.7 fL (80.0-97.0); Platelet Count 274 X 10*3/uL (140-440); RBC 4.62 X 10*6/uL (4.40-5.60); RDW 14.3 % (11.5-14.5); WBC 12.75 X 10*3/uL (4.50-10.00)
[2021-03-16 09:43] LABS: ALT 172 U/L (10-49); AST 178 U/L (14-35); African American GFR (CKD) 125.9 (60.0-200.0); Albumin 3.9 g/dL (3.8-4.9); Albumin/Globulin Ratio 1.34 (1.60-3.17); Alkaline Phosphatase 103 U/L (41-126); BUN/Creat Ratio 14.13 Ratio (12.00-20.00); Blood Urea Nitrogen 11.3 mg/dL (9.0-27.0); Calcium 8.5 mg/dL (8.7-10.3); Carbon Dioxide 25.2 mmol/L (20.0-27.5); Chloride 98 mmol/L (96-109); Chol/HDL Ratio 3.36 Ratio; Globulin 2.9 g/dL (1.6-3.3); Glucose 121 mg/dL (70-110); LDL Cholesterol,Calculated 123.9 mg/dL (0.0-131.0); Magnesium 2.4 mg/dL (1.5-2.4); Non-African American GFR(CKD) 108.6 (60.0-200.0); Sodium 134 mmol/L (135-145); Total Protein 6.8 g/dL (6.2-8.2)
--- NOTE | 2021-03-16 11:09 | P.CRDCN ---
History of Present Illness History of present illness: HISTORY OF PRESENTING ILLNESS This is a pleasant 45-year-old male past medical history significant for paroxysmal atrial fibrillation,mitral valve prolapse. He follows in the office with Dr. Guallpa. We have been asked to see in consultation for chest pain. Patient presents to the emergency department with complaints of chest discomfort. his chest pain started yesterday evening when he was laid down to go to bed. Chest pain is described as retrosternal chest pain radiating to his back. He states he was recently diagnosed with cold/pneumonia over the past couple weeks and his symptoms have resolved. His chest pain was aggravated by laying flat and improved when he sat up or leaning forward. He denies any cough, fever, chills, palpitations, lightheadedness, dizziness, syncope or near syncope. He denies any symptoms of orthopnea PND. He denies any tobacco use. He denies any history of coronary artery disease, RI, stroke, hypertension, hyperlipidemia. He denies any family history of coronary artery disease. DIAGNOSTICS EKG this morning reveals Sinus rhythm, heart rate 89, mild ST elevation in all leads, concerning for pericarditis. EKG on admission reveals sinus rhythm, heart rate 73, nonspecific ST ST-T wave abnormalities inferolaterally. Prior EKG in 2019 with similar findings. Telemetry tracings indicate sinus rhythm HR 80s-low 100s Chest xray mild proctitis or interstitial pneumonitis. echocardiogram 05/2018 revealed EF of 5055 percent, moderate to severe mitral regurgitation, mild prolapse of mitral valve, mild tricuspid regurgitation Laboratory reviewed, WBC 12.7, sodium 134, potassium 4.0, BUN 11, serum creatinine 0.8, magnesium 2.4, troponin negative 3, triglycerides 104, cholesterol 206, LDL 123, HDL 61, viral PCR negative Current home medications include none. REVIEW OF SYSTEMS At the time of my exam: CONSTITUTIONAL: Denies fever or chills. CARDIOVASCULAR:+ chest pain, +shortness of breath, Denies orthopnea, PND or palpitations. RESPIRATORY: Denies cough. GASTROINTESTINAL: Denies abdominal pain, diarrhea, constipation, nausea or vomiting. MUSCULOSKELETAL: Denies myalgias. NEUROLOGIC: Denies numbness, tingling, headacbe or weakness. ENDOCRINE: Denies fatigue, weight change, polydipsia or polyurina. GENITOURINARY: Denies burning, hematuria or urgency with micturation. HEMATOLOGIC: Denies history of anemia or bleeding. PHYSICAL EXAMINATION Vitals 134/78, heart rate 86, afebrile, saturations greater than 92% on room air CONSTITUTIONAL: No apparent distress. HEENT: Head is normocephalic. Pupils are equal, round. Sclerae anicteric. Mucous membranes of the mouth are moist. No JVD. No carotid bruit. CHEST EXAMINATION: Lungs are clear to auscultation. No chest wall tenderness is noted on palpation or with deep breathing. HEART EXAMINATION: Regular rate and rhythm. S1, S2 heard. No murmurs, gallops or rub. ABDOMEN: Soft, nontender. Positive bowel sounds. EXTREMITIES: 2+ peripheral pulses, no lower extremity edema and no calf tenderness. SKIN: warm, dry NEUROLOGIC EXAMINATION: Patient is awake, alert and oriented x3. ASSESSMENT Symptoms of chest pain and EKG changes concerning for Pericarditits Paroxysmal atrial fibrillation -[id number] score 0 Mitral valve prolapse PLAN -Obtain 2D echocardiogram -Start colchicine 0.6mg daily -Continue metorpolol tartrate 25mg BID -Lipid panel reviewed, recommend emphasis on heart health diet and lifestyle. Will discontinue aspirin and statin. -Will not start anticoagulation with [id number] score of 0 -If echocardiogram with no acute findings, ok to discharge today from cardiology perspective and follow up outpatient with his primary slack line yarder Dr. Guallpa. Nurse Practitioner note has been reviewed, I agree with a documented findings and plan of care. Patient was seen and examined. Past Medical History Past Medical History: Atrial Fibrillation Additional Past Medical History / Comment(s): Cardiac valve "problem", past Afib converted with rhythmol, borderline HTN-not on RX. History of Any Multi-Drug Resistant Organisms: None Reported Past Surgical History: Tonsillectomy Additional Past Surgical History / Comment(s): L knee fractured growth plate with surgery. Past Anesthesia/Blood Transfusion Reactions: No Reported Reaction Past Psychological History: No Psychological Hx Reported Smoking Status: Never smoker Past Alcohol Use History: Occasional Past Drug Use History: None Reported - Past Family History Father Family Medical History: Congestive Heart Failure (CHF) Mother Family Medical History: No Reported History Medications and Allergies Home Medications Medication Instructions Recorded Confirmed Type Colchicine [Colcrys] 0.6 mg PO DAILY #30 each 03/16/21 Rx Metoprolol Tartrate [Lopressor] 25 mg PO BID #60 tab 03/16/21 Rx Allergies Allergy/AdvReac Type Severity Reaction Status Date / Time No Known Allergies Allergy Verified 03/15/21 13:31 Physical Exam Vitals: Vital Signs Temp Pulse Resp BP Pulse Ox 03/16/21 06:48 86 18 134/78 99 03/16/21 05:00 89 18 122/85 99 03/16/21 02:36 98 18 134/87 99 03/15/21 17:08 87 18 114/74 99 03/15/21 11:49 96.8 F L 75 18 133/82 97 Results 03/16/21 05:29 03/16/21 05:29 Cardiac Enzymes 03/15/21 03/15/21 03/15/21 Range/Units 11:58 11:58 16:31 AST 41 (17-59) U/L Troponin I <0.012 <0.012 (0.000-0.034) ng/mL 03/15/21 Range/Units 21:06 AST (17-59) U/L Troponin I <0.012 (0.000-0.034) ng/mL Coagulation 03/15/21 03/15/21 Range/Units 11:58 21:33 PT 9.8 (9.0-12.0) sec APTT 21.3 L 26.0 (22.0-30.0) sec CBC 03/15/21 Range/Units 11:58 WBC 13.5 H (3.8-10.6) k/uL RBC 5.03 (4.30-5.90) m/uL Hgb 15.0 (13.0-17.5) gm/dL Hct 44.2 (39.0-53.0) % Plt Count 319 (150-450) k/uL Comprehensive Metabolic Panel 03/15/21 Range/Units 11:58 Sodium 133 L (137-145) mmol/L Potassium 4.2 (3.5-5.1) mmol/L Chloride 99 (98-107) mmol/L Carbon Dioxide 25 (22-30) mmol/L BUN 11 (9-20) mg/dL Creatinine 0.71 (0.66-1.25) mg/dL Glucose 119 H (74-99) mg/dL Calcium 9.2 (8.4-10.2) mg/dL AST 41 (17-59) U/L ALT 43 (4-49) U/L Alkaline Phosphatase 89 (38-126) U/L Total Protein 7.8 (6.3-8.2) g/dL Albumin 4.2 (3.5-5.0) g/dL Current Medications Generic Name Dose Route Start Last Admin Trade Name Freq PRN Reason Stop Dose Admin Aspirin 325 mg 03/16/21 09:00 Aspirin 325 Mg Tab PO DAILY SHREYAS Atorvastatin Calcium 40 mg 03/15/21 21:00 03/15/21 22:26 Atorvastatin 40 Mg Tab PO 40 mg HS SHREYAS Administration Sodium Chloride 1,000 mls @ 100 mls/hr 03/15/21 15:00 03/16/21 02:33 Saline 0.9% IV 100 mls/hr .Q10H SHREYAS Administration Heparin Sodium/Sodium Chloride 250 mls @ 9.798 mls/hr 03/15/21 15:00 03/15/21 16:00 25,000 unit/ Sodium Chloride IV 12 units/kg/hr .Q24H SHREYAS 9.798 mls/hr Administration Protocol 12 UNITS/KG/HR Metoprolol Tartrate 25 mg 03/15/21 21:00 03/15/21 22:26 Metoprolol Tartrate 25 Mg Tab PO 25 mg BID SHREYAS Administration Morphine Sulfate 4 mg 03/15/21 22:39 03/15/21 23:10 Morphine Sulfate 4 Mg/Ml Syringe IVP 4 mg Q4HR PRN Administration Pain Nitroglycerin 0.4 mg 03/15/21 14:58 Nitroglycerin Sl Tabs 0.4 Mg Tab SUBLINGUAL Q5M PRN Chest Pain 03/15/21 11:58 03/15/21 11:58
--- NOTE | 2021-03-16 12:40 | ECHOF ---
Referral Reason:chest pain, evaluate struction and function MEASUREMENTS -------- HEIGHT: 182.9 cm WEIGHT: 127.0 kg BP: IVSd: 1.0 cm (0.6 - 1.1) LVIDd: 5.1 cm (3.9 - 5.3) LVPWd: 1.0 cm (0.6 - 1.1) EDV(Teich): 123 ml IVSs: 1.6 cm LVIDs: 3.5 cm LVPWs: 1.7 cm %IVS Thck: 70 % ESV(Teich): 52 ml EF(Teich): 57 % %FS: 30 % SV(Teich): 70 ml LA Diam: 3.4 cm (2.7 - 3.8) RVIDd: 3.2 cm (< 3.3) LALs A4C: 4.6 cm LAAs A4C: 17.3 cm LAESV A-L A4C: 55 ml LAESV MOD A4C: 47 ml LALs A2C: 5.4 cm LAAs A2C: 16.6 cm LAESV A-L A2C: 43 ml LAESV MOD A2C: 38 ml LAESV(A-L): 53 ml Ao Diam: 3.6 cm (2.0 - 3.7) AV Cusp: 2.5 cm (1.5 - 2.6) EPSS: 0.5 cm MV E Arnoldo: 0.74 m/s MV DecT: 249 ms MV Dec Geary: 3.0 m/s MV A Arnoldo: 0.84 m/s MV E/A Ratio: 0.88 MV PHT: 72 ms AV Vmax: 1.33 m/s AV maxP.04 mmHg TR Vmax: 1.54 m/s TR maxP.52 mmHg RAP: 5.00 mmHg RVSP: 14.52 mmHg MV EF SLOPE: 65.82 mm/s (70 - 150) MV EXCURSION: 30.37 mm (> 18.000) FINDINGS -------- Sinus rhythm. This was a technically good study. The left ventricular size is normal. Left ventricular wall thickness is normal. Overall left vent ricular systolic function is normal with, an EF between 60 - 65 %. The right ventricle is normal in size. The left atrium is normal in size. The right atrium is normal in size. Interatrial and interventricular septum intact. The aortic valve is trileaflet, and appears structurally normal. No aortic stenosis or regurgitation. [id number] mitral regurgitation is present. There is mild mitral valve prolapse , predominate ly a centrally directed jet. Mild tricuspid regurgitation present. Right ventricular systolic pressure is normal at < 35 mmHg. Trace/mild (physiologic) pulmonic regurgitation. The aortic root size is normal. Normal inferior vena cava with normal inspiratory collapse consistent with estimated right atrial pre ssure of 5 mmHg. There is no pericardial effusion. PROMINENT PERICARDIAL STRIPE CONCLUSIONS -------- 1. The left ventricular size is normal. 2. Left ventricular wall thickness is normal. 3. Overall left ventricular systolic function is normal with, an EF between 60 - 65 %. 4. The aortic valve is trileaflet, and appears structurally normal. No aortic stenosis or regurgitati on. 5. Mfzu-mc-mqcpunzk mitral regurgitation is present. 6. There is mild mitral valve prolapse. 7. , predominately a centrally directed jet. 8. Mild tricuspid regurgitation present. 9. Trace/mild (physiologic) pulmonic regurgitation. 10. There is no pericardial effusion. DIRECTOR PHARMACOVIGILANCE: Mya Butler RDCS
--- NOTE | 2021-03-16 16:10 | P.DS ---
Providers Date of admission: 03/15/21 14:58 Expected date of discharge: 03/16/21 Attending physician: Alexandra Saravia DO Consults: 03/15/21 14:58 Consult Physician Urgent Consulting Provider: Tristin Calzada Consult Reason/Comments: Chest pain Do you want consulting provider notified?: Yes Primary care physician: [facility] Course: Patient is a very pleasant 45-year-old male with a past medical history of paroxysmal atrial fibrillation and presented to the emergency department with a chief complaint of chest pain and cough starting yesterday evening. Patient was given aspirin and nitroglycerin by EMS and transported to ER. In the emergency department, patient underwent a chest x-ray which revealed findings consistent with mild bronchitis or interstitial pneumonitis. An EKG revealed sinus rhythm at 73 bpm with inferior lateral T-wave abnormalities unchanged from previous EKG obtained 05/28/2018. Labs revealing mild leukocytosis with WBC count of 13.5, mild hyponatremia with sodium of 133, and hypomagnesemia with magnesium of 1.5. Troponin normal findings at < 0.012 and pro-BMP 291. Patient started on heparin infusion in the emergency department per [facility] protocol for unstable angina and was admitted under our services with consultation to cardiology. However, upon further review his history, patient reported having a URI type illness proximally one month ago, and his chest pain was constant, and not related to position or exertion or food intake. Given this, and the findings of interstitial pneumonitis with mild bronchitis on chest x-ray, patient was determined to have acute pericarditis is a far more likely possibility then acute coronary syndrome. Therefore, heparin drip was stopped, and patient was started on colchicine twice a day. He was also continued on metoprolol for his history of paroxysmal atrial fibrillation, but given low chads score, patient was not started on anticoagulation. Echocardiogram revealed normal heart structure and function with only mild mitral regurgitation. Patient was discharged with 30 days of colchicine, with instructions to follow-up with primary care physician for extension of the course to 3 months if needed. Acute pericarditis History of paroxysmal atrial fibrillation, CHADS-VASc score is 0 -No AC indicated on discharge. Assessment: Gen: awake, alert HEENT: normocephalic, atraumatic, good hearing acuity, moist mucous membranes Resp: good air exchange, breathing comfortably with no accessory muscle use, clear to auscultation bilaterally CVS: good distal perfusion x 4, regular rate and rhythm without murmurs GI: soft, NTTP, ND : no SPT, no CVAT, ott catheter not present MSK: no pitting edema, no clubbing Neuro: non-focal, moving all extremities Psych: cooperative, euthymic mood Patient Condition at Discharge: Good Plan - Discharge Summary Discharge Rx Participant: No New Discharge Prescriptions: New Colchicine [Colcrys] 0.6 mg PO DAILY #30 each Metoprolol Tartrate [Lopressor] 25 mg PO BID #60 tab Discharge Medication List Colchicine [Colcrys] 0.6 mg PO DAILY #30 each 03/16/21 [Rx] Metoprolol Tartrate [Lopressor] 25 mg PO BID #60 tab 03/16/21 [Rx] Follow up Appointment(s)/Referral(s): Jarrett Munguia MD [Primary Care Provider] - 1-2 days (Office will call you with an appointment.) Anali Guallpa MD [REFERRING] - 1 Week Patient Instructions/Handouts: Pneumonitis (DC) Discharge Disposition: HOME SELF-CARE
[2021-03-20 14:21] LABS: Parvovirus B-19 IgM Antibodies 0.21 INDEX (<=0.90)
== END 2021-03-16 13:09 | disposition home or self-care (01) ==
LOC: EC 11:46 → 6NMEDSUR 14:58 → 3SCARD 03-16 08:05
PROVIDERS: ADMIT Internal Medicine; ATTEND Internal Medicine
DX: I30.9 Acute pericarditis, unspecified (principal); E87.1 Hypo-osmolality and hyponatremia; E83.42 Hypomagnesemia; I48.0 Paroxysmal atrial fibrillation; J84.89 Other specified interstitial pulmonary diseases; I08.1 Rheumatic disorders of both mitral and tricuspid valves; J40 Bronchitis, not specified as acute or chronic; Z20.822 Contact with and (suspected) exposure to COVID-19; Z98.890 Other specified postprocedural states; Z87.01 Personal history of pneumonia (recurrent); Z82.49 Family history of ischemic heart disease and other diseases of the circulatory system
CPT/HCPCS: 96366 ×2; 96376; 96365; 96375; 99291; 36415; 93005 ×2; 93306; 86747 ×2; 85379; 83880; 80061; 80053 ×2; 83690; 83735 ×2; 84484; 85025; 85027; 86658; 85610; 85730; 87040; 87636; 71046; G0378 ×3; J2270; J0696; J1644 ×2; J3475 ×2